=== PATIENT | male | born 1960 ===

== ENCOUNTER 2025-03-07 08:47 | Day surgery (SDC) | payer OTHER ==
[~2025-03-07] VITALS: Ht 185.4 cm; Wt 83.1 kg
[~2025-03-07 08:47] MED LIST: Lactated Ringer's 1,000 ML IV ONE; propofoL 50 ML IV ONE
[2025-03-07] MEDS ORDERED: AMLODIPINE BESYL5 MG (09:17)
[2025-03-07] MEDS ORDERED: Lisinopril2.5 MG (09:18)
[2025-03-07] MEDS ORDERED: Lactated Ringer's 1,000 ML IV ONE (09:38)
[2025-03-07] MEDS ORDERED: Ondansetron HCl 2 MG / ML 2ML Vial ONE (09:58)
== END 2025-03-07 11:02 | disposition home or self-care (01) ==
LOC: ORSCSDS 08:47
PROVIDERS: Surgery
PROC: 0DBK8ZX Excision of Ascending Colon, Via Natural or Artificial Opening Endoscopic, Diagnostic (ICD-10-PCS; principal; 2025-03-07 10:15)
PROC: 0DBL8ZX Excision of Transverse Colon, Via Natural or Artificial Opening Endoscopic, Diagnostic (ICD-10-PCS; principal; 2025-03-07 10:15)
DX: Z12.11 Encounter for screening for malignant neoplasm of colon (principal); Z80.0 Family history of malignant neoplasm of digestive organs; Z83.719 Family history of colon polyps, unspecified; D12.2 Benign neoplasm of ascending colon; D12.3 Benign neoplasm of transverse colon; I10 Essential (primary) hypertension; Z79.899 Other long term (current) drug therapy
CPT/HCPCS: 88305; J2405; J2704; J7120